=== PATIENT | male | born 1940 | race Caucasian/White ===

== ENCOUNTER → 2024-01-11 08:11 | Outpatient (REF) | payer MEDICARE, SELFPAY | LOC: RAD 08:11 | PROVIDERS: ATTENDING PHYSICIAN Internal Medicine Hematology & Oncology; FAMILY PHYSICIAN Family Medicine | DX: D70.9 Neutropenia, unspecified (principal); D72.820 Lymphocytosis (symptomatic); C91.Z0 Other lymphoid leukemia not having achieved remission | CPT/HCPCS: 76705 ==

== ENCOUNTER → 2024-01-12 15:43 | Outpatient (REF) | payer MEDICARE, SELFPAY ==
[2024-01-12 16:59] LABS: Hematocrit 32.8 % (39.0-52.0); Mean Corp Hgb Conc. 33.5 g/dL (33.0-37.0); Mean Corpuscular Hgb 32.4 pg (27.0-31.0); Mean Corpuscular Volume 96.8 fL (80.0-94.0); Mean Platelet Volume 8.9 fL (7.4-10.4); Nucleated Red Blood Cells % 0 % (-); Platelet Count 212 10^3/uL (130-400); Red Blood Cell Count 3.39 10^6/uL (4.70-6.10); Red Cell Dist. Width 13.7 % (11.5-14.5); White Blood Cell Count 5.3 10^3/uL (4.8-10.8)
[2024-01-12 17:34] LABS: Atypical Lymphocytes 1 %; Band Neutrophils 0 % (0-3); Eosinophils 2 % (0-6); Lymphocytes 59 % (20-51); Microcytosis Slight; Monocytes 18 % (2-9); Normal RBC Morphology No; Ovalocytes Occasional; Platelets Checked Yes; Segmented Neutrophils 20 % (42-75); Total Cells Counted 100
== END ==
LOC: OLABPV 15:43
PROVIDERS: ATTENDING PHYSICIAN Internal Medicine Hematology & Oncology
DX: D70.9 Neutropenia, unspecified (principal); D72.820 Lymphocytosis (symptomatic); C91.Z0 Other lymphoid leukemia not having achieved remission
CPT/HCPCS: 36415; 84155; 84165; 85025

== ENCOUNTER → 2024-02-02 16:06 | Outpatient (REF) | payer MEDICARE, SELFPAY | LOC: HWRCS 16:06 | PROVIDERS: ATTENDING PHYSICIAN Internal Medicine Cardiovascular Disease; FAMILY PHYSICIAN Family Medicine | DX: R01.1 Cardiac murmur, unspecified (principal); I35.0 Nonrheumatic aortic (valve) stenosis; R06.02 Shortness of breath; I25.10 Atherosclerotic heart disease of native coronary artery without angina pectoris; I25.82 Chronic total occlusion of coronary artery | CPT/HCPCS: 93306 ==

== ENCOUNTER → 2024-02-11 12:08 | Outpatient (REF) | payer MEDICARE, SELFPAY ==
[2024-02-11 13:08] LABS: Hematocrit 31.4 % (39.0-52.0); Hemoglobin 10.6 g/dL (13.0-18.0); Mean Corp Hgb Conc. 33.8 g/dL (33.0-37.0); Mean Corpuscular Hgb 32.7 pg (27.0-31.0); Mean Corpuscular Volume 96.9 fL (80.0-94.0); Mean Platelet Volume 9.1 fL (7.4-10.4); Platelet Count 175 10^3/uL (130-400); Red Blood Cell Count 3.24 10^6/uL (4.70-6.10); Red Cell Dist. Width 14.4 % (11.5-14.5)
[2024-02-11 13:21] LABS: ALT (SGPT) 22 U/L (0-50); AST (SGOT) 33 U/L (17-59); Albumin 4.3 g/dl (3.5-5.0); Alkaline Phosphatase 89 U/L (38-126); Blood Urea Nitrogen 32 mg/dl (9-20); Carbon Dioxide 27 mmol/L (22-30); Chloride 105 mmol/L (98-107); Glucose 92 mg/dl (70-99); HDL Cholesterol 51 mg/dl; LDL Cholesterol, Calculated 52 mg/dl; Potassium 4.6 mmol/L (3.5-5.1); Sodium 138 mmol/L (135-145); Total Bilirubin 0.5 mg/dl (0.2-1.3); Total Cholesterol 114 mg/dl (50-199); Triglyceride 56 mg/dl (10-149); Very Low Density Lipoprotein 11 mg/dl (0-30); eGFR 59.63
[2024-02-11 14:19] LABS: Absolute Neutrophils -Man Diff 1.2 10^3/uL (1.4-6.5); Anisocytosis Slight; Band Neutrophils 0 % (0-3); Eosinophils 5 % (0-6); Lymphocytes 65 % (20-51); Monocytes 6 % (2-9); Normal RBC Morphology No; Platelets Checked Yes; Segmented Neutrophils 24 % (42-75)
[2024-02-11 14:20] LABS: Ovalocytes Slight; Total Cells Counted 100
== END ==
LOC: OLABPV 12:08
PROVIDERS: ATTENDING PHYSICIAN Family Medicine
DX: I25.10 Atherosclerotic heart disease of native coronary artery without angina pectoris (principal); N18.31 Chronic kidney disease, stage 3a; C91.10 Chronic lymphocytic leukemia of B-cell type not having achieved remission
CPT/HCPCS: 36415; 80053; 80061; 85025

== ENCOUNTER → 2024-06-13 10:52 | Outpatient (REF) | payer MEDICARE, SELFPAY ==
[2024-06-13 11:32] LABS: Hematocrit 31.8 % (39.0-52.0); Hemoglobin 10.7 g/dL (13.0-18.0); Mean Corp Hgb Conc. 33.6 g/dL (33.0-37.0); Mean Corpuscular Hgb 32.2 pg (27.0-31.0); Mean Corpuscular Volume 95.8 fL (80.0-94.0); Mean Platelet Volume 9.1 fL (7.4-10.4); Platelet Count 179 10^3/uL (130-400); Red Blood Cell Count 3.32 10^6/uL (4.70-6.10)
[2024-06-13 11:59] LABS: % Basophils 0.4 % (0-2); % Eosinophils 3.6 % (0-6); % Lymphocytes 68.3 % (20.5-51.1); % Monocytes 18.3 % (1.7-9.3); % Neutrophils 9.4 % (42.2-75.2); Absolute Eosinophils 0.2 10^3/uL (0-0.7); Absolute Lymphocytes 3.4 10^3/uL (1.2-3.4); Absolute Monocytes 0.9 10^3/uL (0.1-0.6); Absolute Neutrophils 0.5 10^3/uL (1.4-6.5); Nucleated Red Blood Cells % 0 % (-)
== END ==
LOC: OLABPV 10:52
PROVIDERS: ATTENDING PHYSICIAN Internal Medicine Cardiovascular Disease
DX: D70.9 Neutropenia, unspecified (principal); D72.820 Lymphocytosis (symptomatic); C91.Z0 Other lymphoid leukemia not having achieved remission; I25.10 Atherosclerotic heart disease of native coronary artery without angina pectoris; D64.9 Anemia, unspecified
CPT/HCPCS: 36415; 85025

== ENCOUNTER → 2025-01-30 09:56 | Outpatient (REF) | payer MEDICARE, SELFPAY | LOC: RST 09:56 | PROVIDERS: ATTENDING PHYSICIAN Family Medicine | DX: R13.10 Dysphagia, unspecified (principal) | CPT/HCPCS: 74230; 92611 ==

== ENCOUNTER → 2025-02-16 09:22 | Outpatient (REF) | payer MEDICARE, SELFPAY ==
[2025-02-16 11:06] LABS: Hematocrit 35.8 % (39.0-52.0); Hemoglobin 11.9 g/dL (13.0-18.0); Mean Corp Hgb Conc. 33.2 g/dL (33.0-37.0); Mean Corpuscular Hgb 33.1 pg (27.0-31.0); Mean Corpuscular Volume 99.7 fL (80.0-94.0); Mean Platelet Volume 9.3 fL (7.4-10.4); Platelet Count 196 10^3/uL (130-400); Red Blood Cell Count 3.59 10^6/uL (4.70-6.10); Red Cell Dist. Width 13.5 % (11.5-14.5); White Blood Cell Count 5.8 10^3/uL (4.8-10.8)
[2025-02-16 11:17] LABS: ALT (SGPT) 20 U/L (0-50); AST (SGOT) 26 U/L (17-59); Albumin 4.6 g/dl (3.5-5.0); Alkaline Phosphatase 80 U/L (38-126); Blood Urea Nitrogen 24 mg/dl (9-20); Calcium 9.9 mg/dl (8.4-10.2); Carbon Dioxide 27 mmol/L (22-30); Chloride 106 mmol/L (98-107); Glucose 97 mg/dl (70-99); HDL Cholesterol 45 mg/dl; LDL Cholesterol, Calculated 55 mg/dl; Potassium 4.3 mmol/L (3.5-5.1); Sodium 140 mmol/L (135-145); Total Bilirubin 0.5 mg/dl (0.2-1.3); Total Cholesterol 123 mg/dl (50-199); Total Protein 7.5 g/dl (6.3-8.2); Triglyceride 117 mg/dl (10-149); Very Low Density Lipoprotein 23 mg/dl (0-30); eGFR 59.26
[2025-02-16 11:41] LABS: % Basophils 0.5 % (0-2); % Eosinophils 5.6 % (0-6); % Immature Granulocytes 0.2 % (0-0.5); % Lymphocytes 62.4 % (20.5-51.1); % Neutrophils 16.3 % (42.2-75.2); Absolute Eosinophils 0.3 10^3/uL (0-0.7); Absolute Lymphocytes 3.6 10^3/uL (1.2-3.4); Absolute Monocytes 0.9 10^3/uL (0.1-0.6); Absolute Neutrophils 0.9 10^3/uL (1.4-6.5); Nucleated Red Blood Cells % 0 % (-)
== END ==
LOC: OLABPV 09:22
PROVIDERS: ATTENDING PHYSICIAN Family Medicine
DX: N18.31 Chronic kidney disease, stage 3a (principal); E78.2 Mixed hyperlipidemia; C91.10 Chronic lymphocytic leukemia of B-cell type not having achieved remission
CPT/HCPCS: 36415; 80053; 80061; 85025

== ENCOUNTER → 2025-04-05 10:15 | Outpatient (REF) | payer MEDICARE, SELFPAY | LOC: RCS 10:15 | PROVIDERS: ATTENDING PHYSICIAN Internal Medicine Cardiovascular Disease; FAMILY PHYSICIAN Family Medicine | DX: I35.0 Nonrheumatic aortic (valve) stenosis (principal) | CPT/HCPCS: 93306 ==

== ENCOUNTER → 2025-04-11 13:15 | Outpatient (REF) | payer MEDICARE, SELFPAY ==
[2025-04-11 14:15] LABS: Hematocrit 35.0 % (39.0-52.0); Hemoglobin 11.4 g/dL (13.0-18.0); Mean Corp Hgb Conc. 32.6 g/dL (33.0-37.0); Mean Corpuscular Volume 98.3 fL (80.0-94.0); Platelet Count 179 10^3/uL (130-400); Red Cell Dist. Width 13.8 % (11.5-14.5)
[2025-04-11 14:17] LABS: ALT (SGPT) 21 U/L (0-50); AST (SGOT) 26 U/L (17-59); Albumin 4.5 g/dl (3.5-5.0); Alkaline Phosphatase 63 U/L (38-126); Blood Urea Nitrogen 27 mg/dl (9-20); Calcium 10.5 mg/dl (8.4-10.2); Carbon Dioxide 31 mmol/L (22-30); Chloride 103 mmol/L (98-107); Glucose 96 mg/dl (70-99); Potassium 4.5 mmol/L (3.5-5.1); Sodium 139 mmol/L (135-145); Total Protein 7.7 g/dl (6.3-8.2); eGFR 53.84
[2025-04-11 14:47] LABS: Nucleated Red Blood Cells % 0 % (-)
== END ==
LOC: SDSPAT 13:15
PROVIDERS: ATTENDING PHYSICIAN Internal Medicine Cardiovascular Disease; FAMILY PHYSICIAN Family Medicine; OTHER PHYSICIAN Internal Medicine Cardiovascular Disease
DX: I35.0 Nonrheumatic aortic (valve) stenosis (principal)
CPT/HCPCS: 36415; 80053; 85025; 93005

== ENCOUNTER → 2025-04-16 09:03 | Outpatient (REF) | payer MEDICARE, SELFPAY | LOC: RAD 09:03 | PROVIDERS: ATTENDING PHYSICIAN Internal Medicine Cardiovascular Disease; FAMILY PHYSICIAN Family Medicine | DX: I35.0 Nonrheumatic aortic (valve) stenosis (principal); R93.1 Abnormal findings on diagnostic imaging of heart and coronary circulation; R01.1 Cardiac murmur, unspecified; I25.10 Atherosclerotic heart disease of native coronary artery without angina pectoris; R06.02 Shortness of breath | CPT/HCPCS: 74174; 75572; Q9967 ==

== ENCOUNTER 2025-04-18 07:20 | Day surgery (SDC) | payer MEDICARE, SELFPAY ==
[2025-04-11 13:20] VITALS: BMI 23.7
[2025-04-18] VITALS (12 sets, daily range): BP systolic 104–150; BP diastolic 52–90
[2025-04-18] MEDS: LOW STRENGTH ASPIRIN 81 MG PO (07:55)
[2025-04-18] MEDS: NSS 200 ML IV (07:57)
[2025-04-18 08:33] LABS: Blood Urea Nitrogen 29 mg/dl (9-20); Calcium 10.0 mg/dl (8.4-10.2); Carbon Dioxide 29 mmol/L (22-30); Chloride 106 mmol/L (98-107); Estimated Creatinine Clearance 37 ml/min; Glucose 104 mg/dl (70-99); Potassium 4.4 mmol/L (3.5-5.1); Sodium 140 mmol/L (135-145); eGFR 53.84
[2025-04-18 09:57] LABS: ACT-LR - POC > 397 Seconds (116-155)
--- NOTE | 2025-04-18 10:19 | ITS.CL.CATH ---
Crm Analyst - Catheterization
Cardiac Catheterization
Procedure Report:
CARDIAC CATHETERIZATION REPORT
Date of Procedure: 04/18/2025
Referring: Richard Kemp M.D.
Indication: Severe aortic valve stenosis, known coronary artery disease.
PROCEDURE:
1. Right heart catheterization.
2. Coronary angiography.
3. Left heart catheterization.
4. Aortic valve interrogation.
5. IFR of the ostial LAD.
A total of 37 minutes of procedural/moderate sedation was utilized. An independent medical dir was present to assist with and help manage the patient's level of consciousness and physiologic status.
ACCESS:
1. 6 Maltese right radial artery using a modified Seldinger technique.
2. 5 Maltese right antecubital vein using a modified Seldinger technique under ultrasound guidance.
CATHETERS:
1. 5 Maltese balloon with.
2. 5 Maltese JR4.
3. 5 Maltese JL 3.5.
4. 6 Maltese Bronson dual-lumen pigtail catheter.
HEMODYNAMIC DATA
Weight (kg): 66.2
AO (s/d/x, mmHg): 119/59/82
LV (s/x, mmHg): 148/14
PCWP (a/v/x, mmHg): 18/15/14
PA (s/d/x, mmHg): 34/15/21
RV (s/x, mmHg): 34/9
RA (a/v/x, mmHg): 12//10
SVC SvO2 (%): 76.2
IVC SvO2 (%): Not obtained.
RA SvO2 (%): Not obtained.
RV SvO2 (%): Not obtained.
PA SvO2 (%): 76.8
SaO2 (%): 97.8
Hbg (g/dL): . 10.8
LIZZETTE
CO (L/min): 6.34
CI (L/min/m2): 3.62
Thermodilution
CO (L/min): Not performed.
CI (L/min/m2): Not performed.
TPG (mmHg): 7
PVR (García Units): 1.1
SVR (dynes*seconds*cm^-5): 909
AVO2 Diff (Volume %): 3.08
Dual Lumen
AV gradient (x, mmHg): 41.3
AV area (cm2): 1.0
Pullback
AV gradient (x, mmHg): 32.5
AV area (cm2): 1.6
MV gradient (x, mmHg): Not obtained.
MV area (cm2): Not obtained.
LEFT VENTRICULOGRAPHY: Not performed.
AORTOGRAPHY: Not performed.
CORONARY ANGIOGRAPHY
Dominance: Right.
Left Main: Normal size, trifurcating vessel. There is no coronary artery disease.
LAD: Normal size vessel giving rise to 1 significant diagonal. The vessel has a 60% lesion in its ostium that is densely calcified.
Ramus: Small, vestigial vessel.
Circumflex: Large size, nondominant vessel that is essentially a single large obtuse marginal. The origin of the vessel is somewhat tortuous with a 30-40% lesion in its origin.
RCA: Normal size, dominant vessel. 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 The distal RCA is chronically totally occluded with combined right to right epicardial and [id number] collateralization
of the RPDA.
INTERVENTIONS
1. Successful IFR of the 60% ostial LAD lesion, demonstrating nonocclusive disease (IFR = 0.94).
Narrative:
Closure Device: Vascular band for the right radial artery, manual pressure for the right antecubital vein.
Radiation dose (mGy): 311.56
DAP (cm2.Gy): 24.6168
Fluoroscopy time (minutes): 4.9
CONCLUSIONS:
1. 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
from the circumflex, a tortuous origin of the circumflex with a 30-40% lesion in its origin and a densely calcified, nonocclusive 60% lesion in the ostium of the LAD (IFR = 0.94).
2. Top normal to mildly elevated filling pressures (LVEDP = 14 mmHg, PCWP = 14 mmHg at 66.2 kg).
3. Aortic valve stenosis of unclear severity. The aortic valve gradient measured 41.3 mmHg with dual-lumen pigtail catheter, however there was significant discrepancy without fidelity of measurement on catheter pullback with a dual-lumen catheter.
Mean gradient on endhole catheter pullback was 32.47 mmHg. These measurements correspond to an aortic valve area of 1.0 cm� and 1.62 cm�. I suspect that the aortic valve is of moderate to severe severity and I do not observe any other hemodynamic
or ischemic sources for his decreased exercise tolerance and shortness of breath.
RECOMMENDATIONS:
1. Expectant management after cardiac catheterization via right radial/antecubital approach.
2. Limited weight bearing on the right wrist for one week.
3. Continue TAVR workup.
4. Continue aggressive primary prevention with high-dose, high potency statin. Goal LDL <55.
5. OMT/GDMT as hemodynamics will tolerate.
Copy to: Richard Kemp M.D., Pankaj Cortez M.D.
Cedric Rosales, , FACC, FACP
== END 2025-04-18 14:00 | disposition home or self-care (01) ==
LOC: CATH 07:20
PROVIDERS: Nurse Practitioner; ATTENDING PHYSICIAN Internal Medicine Cardiovascular Disease; FAMILY PHYSICIAN Family Medicine; OTHER PHYSICIAN Internal Medicine Cardiovascular Disease
DX: I35.0 Nonrheumatic aortic (valve) stenosis (principal); E78.5 Hyperlipidemia, unspecified; I25.10 Atherosclerotic heart disease of native coronary artery without angina pectoris; I25.82 Chronic total occlusion of coronary artery; N18.30 Chronic kidney disease, stage 3 unspecified; G89.29 Other chronic pain; M54.50 Low back pain, unspecified; M19.90 Unspecified osteoarthritis, unspecified site; C91.10 Chronic lymphocytic leukemia of B-cell type not having achieved remission; D64.9 Anemia, unspecified; R73.01 Impaired fasting glucose; A69.20 Lyme disease, unspecified; H91.90 Unspecified hearing loss, unspecified ear; E83.52 Hypercalcemia; Z79.899 Other long term (current) drug therapy; Z79.82 Long term (current) use of aspirin; Z88.0 Allergy status to penicillin
CPT/HCPCS: 93799; 99152; 99153; 80048; 85347; 93460; C1769; C1894; Q9967

== ENCOUNTER 2025-06-07 09:21 | Inpatient (IN) | payer MEDICARE, SELFPAY ==
[2025-05-30 12:17] VITALS: BMI 22.4
--- NOTE | 2025-05-30 12:47 | W.PN.UPDATE ---
Update Note
Progress Note Update
Assessed patient in preadmission testing. The patient's condition is unchanged from the time of the dictated/written History and Physical. Confirmed medication list and he will continue 81 mg aspirin daily including the morning of TAVR. Informed Mr.
Akash his arrival time will be 0930 to the [facility]. Allowed for and answered questions.
[2025-05-30 13:07] LABS: Hematocrit 33.6 % (39.0-52.0); Hemoglobin 11.0 g/dL (13.0-18.0); Mean Corp Hgb Conc. 32.7 g/dL (33.0-37.0); Mean Corpuscular Volume 98.8 fL (80.0-94.0); Platelet Count 175 10^3/uL (130-400); Red Cell Dist. Width 13.9 % (11.5-14.5)
[2025-05-30 13:12] LABS: INR 1.06; PT 14.3 Sec (11.4-14.6)
--- NOTE | 2025-05-30 13:22 | CM ---
Met with Mr. Bustos in [facility]. He states prior to admission he resides with his spouse in the independent section of [facility]. He states he has a one story home without any steps to enter. He states prior to admission he was
independent with ambulation and adls. He states he does not have any DME in the home. He states he has a prescription plan and uses [facility]. His daughter will be in town to stay with his spouse while he is here. He states his spouse will be
home to assist in his care if needed. The discharge plan is to return home with his spouse and a home visit by the Transitional Care Nurse when medically stable.
We reviewed pre-op and post-op routines. We reviewed the shower instructions. He has the soap, written instructions and the TAVR Educational Booklet. We also reviewed restrictions including driving and lifting restrictions. We discussed a home
visit by the Transitional Care Nurse. He is agreeable to a home visit. The plan is for TAVR on May.
[2025-05-30 13:40] LABS: ALT (SGPT) 21 U/L (0-50); AST (SGOT) 28 U/L (17-59); Albumin 4.6 g/dl (3.5-5.0); Alkaline Phosphatase 73 U/L (38-126); Blood Urea Nitrogen 29 mg/dl (9-20); Calcium 10.0 mg/dl (8.4-10.2); Carbon Dioxide 29 mmol/L (22-30); Chloride 103 mmol/L (98-107); Estimated Creatinine Clearance 41 ml/min; Glucose 78 mg/dl (70-99); Potassium 4.6 mmol/L (3.5-5.1); Sodium 138 mmol/L (135-145); Total Protein 7.8 g/dl (6.3-8.2); eGFR 59.26
[2025-05-30 13:49] LABS: Absolute Neutrophils -Man Diff 0.3 10^3/uL (1.4-6.5)
[2025-05-30 13:50] LABS: Platelets Checked Yes
[2025-05-30 13:51] LABS: Acanthocytes FEW; Anisocytosis 1+; Hypochromasia 1+; Normal RBC Morphology No; Ovalocytes FEW; Polychromasia 1+; Total Cells Counted 100
[2025-05-30 13:53] LABS: Glycohemoglobin (HgbA1c) 5.3 % (4.0-5.6)
[2025-05-30 14:17] LABS: Urine Character Clear (Clear)
[2025-06-07] VITALS (21 sets, daily range): BP systolic 103–147; BP diastolic 45–66
--- NOTE | 2025-06-07 11:19 | W.CVOR.SURPR ---
CVOR Surgeon Immed Pre Op
-
I have examined this patient prior to performance of the scheduled procedure.
The patient's condition is unchanged from the time of the dictated/written History and
Physical and the patient is able to undergo the scheduled procedure.
[2025-06-07 13:04] LABS: ACT-LR - POC 385 Seconds (116-155)
--- NOTE | 2025-06-07 13:14 | ITS.CL.TAVR ---
Executive Housekeeper - TAVR Report
TAVR PRocedure
Procedure Report:
TRANSCATHETER AORTIC VALVE REPLACEMENT REPORT
Date: 06/07/2025
Referring physician: Richard Kemp M.D.
Preop diagnosis: Severe aortic valve stenosis.
Postop diagnosis: Severe aortic valve stenosis.
Procedure: Transcatheter aortic valve replacement (TAVR) using a #23 Kemp LEANNA S3 Ultra Resilia THV.
Operators: Cedric Rosales DO, Lisa Soler, M.D.
Findings: Severely calcified and stenotic aortic valve.
Anesthesia: Conscious sedation was provided by the anesthesia staff.
Estimated blood loss: Negligible.
Complications: None.
Condition: Stable
Procedure:
The patient was brought to the cardiac veterinary laboratory diagnostician after consent and was prepped and draped in standard sterile fashion. Conscious sedation was provided by the anesthesia staff. After a 'Time Out,' bilateral common femoral arteries and the right
common vein were access using a modified Seldinger technique with a micropuncture kit under ultrasound guidance. A 6 Cypriot sheath was placed in the right femoral vein. Angiography performed through the micropuncture sheath confirmed satisfactory
arterial placement in the right common femoral artery. The micropuncture sheath was replaced with a 6Fr sheath in the right MULTIPLE EFFECT EVAPORATOR OPERATOR. Angiography through the micropuncture kit confirmed satisfactory arterial placement in the left common femoral artery.
The left MULTIPLE EFFECT EVAPORATOR OPERATOR was dilated with an 8FR dilator and preclosed with two Perc-Close devices. An 8Fr sheath was placed in the LCFA. A temporary pacing wire was advanced through the right femoral vein and into the right ventricle. The pacemaker
demonstrated good capture and was set to back up. A 5Fr pigtail catheter was advanced through the right femoral sheath and seated in the right coronary cusp. Angiography confirmed co-planar angles.
An AL-1 catheter was advanced through the 8Fr sheath, the J wire was exchanged for an Amplatz Extra-Stiff wire and the catheter and the 8 Fr sheath were removed. The 14 Fr Kemp E-Sheath was inserted over the wire and into the descending aorta.
Heparin 6000 units was given. The LEANNA S3 was prepared on the back table. Orientation was confirmed by both physicians. The AL-1 catheter was re-advanced through the E-sheath to the level of the ascending aorta. The Extra-Stiff wire was
removed and a soft tip straight wire was advanced through the AL-1. The straight tip wire was used to cross the aortic valve and the catheter was advanced into the left ventricle. The straight wire was removed. Left ventricular pressure was
measured. An Amplatz Extra-Stiff wire with curved proximal end was advanced through the catheter and into the left ventricular apex. The catheter was removed. ACT was checked and confirmed to be > 250 seconds.
The valve was advanced over the Extrastiff wire and into the descending aorta. The balloon was pulled back and the valve was mounted on the balloon. The valve was advanced through the aortic arch and into the aortic valve annulus. The pusher
device was withdrawn to allow for balloon expansion. Low volume aortography confirmed good position of the valve. The valve was deployed during rapid ventricular pacing. Echocardiography and aortography confirmed a good result with trace aortic
valve insufficiency and a 6 mmHg mean gradient. The valve deployment system was removed. The Kemp E-Sheath was then removed and hemostasis obtained with the two Perc-Close sutures. Final angiography demonstrated no evidence of ileofemoral
dissection/perforation and good runoff below the common femoral artery. The pacemaker and the pigtail catheter were removed. The right femoral artery sheath was removed using a 6 Cypriot Angio-Seal. The right femoral venous sheath was removed and
manual pressure was applied with excellent hemostasis. Protamine 30 mg was administered.
Radiation
Dose (mGy): 165
DAP (cm2.Gy): 19.1
Fluoroscopy time (minutes): 9.6
TAVR Echo Gradient (mmHg): 6
LV (s/x, mmHg): 149/22
TAVR Cath Gradient (mmHg): Not obtained.
Conclusions:
1. Successful placement of #23 Leanna S3 Ultra aortic valve via left transfemoral approach with no acute complications.
2. Moderately elevated filling pressures (LVEDP = 22 mmHg at 64.4 kg).
Cedric Rosales DO, FACC, FACP
Copy to: Richard Kemp M.D., Pankaj Cortez M.D.
--- NOTE | 2025-06-07 13:19 | W.PN.CT.SURG ---
CT Surgery Operative Note
-
OPERATIVE REPORT
Preoperative Diagnosis: Severe aortic valve stenosis, symptomatic
Postoperative Diagnosis: Same
Procedure(s) Performed: Left trans femoral TAVR with a 23 mm Kemp TAVR valve
Date of Procedure: 06/07/2025
Comorbidities:
1. Severe aortic stenosis, symptomatic
2. Coronary artery disease
3. CKD
Cardiac Surgeon: Tonia Whiteside MD, MPH
Dress Fitter: Cedric Rosales MD
Anesthesia: Conscious Sedation and Local Analgesia
EBL: 100 cc
Products: none
Implant: 23 mm Kemp Resilia, SN: [id number]
Indication(s) for Procedures: 84-year-old male with symptomatic severe aortic stenosis. PG/M/44 mmHg, MAXINE 0.9. CT-TAVR protocol revealed acceptable anatomy for TAVR access and implantation.
Start time: 1224 hrs
Deployment time: 1257 hrs
End time: 1310 hrs
Radiation Dose (mGy): 165
DAP (cm2.Gy): 19.1
Fluoroscopy time (minutes): 9.6
Contrast volume (ml): 50
TAVR gradient (mmHg): 6 mmHg
Heparin Dose: 6000 units
Protamine Dose: 30 mg
Final Valve Positionin/10
LVEPD: 27 mmHG
Findings: Preoperative LVEF was 60-65% and was 60-65% following TAVR without inotropic support. Function was overall normal without regional wall motion abnormalities or dyskinesia. The aortic valve was well seated without detectable PVL and mean
gradient across the new valve was 6 mmHg. Was on minimal pressor support and returned to sinus while on the laborer/grade check table. There was successful placement of 23 mm TAVR valve without acute complications.
Access:
1. Device -L PROMOTIONS MANAGER, perclose x 2
2. Pigtail -R PROMOTIONS MANAGER + 6Fr angioseal
3. Transvenous Pacer -R femoral vein
Description of Procedure: The patient was taken to the laborer/grade check. Their identity and procedure to be performed were verified and they were positioned supine on the laborer/grade check table. Induction via conscious sedation. The patient was then prepped and
draped from chin to thigh in a sterile fashion. A preoperative time-out was performed with all members of the team present. Arterial and venous access was performed using fluoroscopy and ultrasound guidance with micropuncture and Seldinger
technique. Two perclose devices were used on the device side followed by access to the aorta with a stiff wire to facilitate E-sheath placement. Heparin was given. A stiff straight wire and AL-1 catheter was used to cross the aortic valve. An LVEDP
was measured. The stiff wire was exchanged for an extra stiff coiled tip wire. The valve was prepped and mounted on to the device carrier. An ACT of >250 was achieved. We verified x 3 that the valve was mounted in the correct orientation with the
skirt of the valve directed toward the tip of the device carrier. We advanced the device into the descending thoracic aorta where the valve was them mounted onto the balloon under fluoroscopy. The device was flexed and advanced over the arch into
the root and positioned across the aortic valve. Contrast fluoroscopy was used to visualize the prosthesis across the valve and to guide positioning. A pigtail catheter in the RCC as used as a guide. We aimed to have the bottom of the device marker
at the annular hinge point. The device sheath was pulled back. We performed a quick pre-deployment time out. The pacer was turned on and had capture. Blood pressure fell accordingly, angiography was done to verify the intended final placement and
the valve was deployed with 5 seconds of rapid pacing to nominal volume. The balloon was deflated and the pacer was turned off. We had recovery of vitals. The device carrier was unflexed and positioned back in the descending thoracic aorta. A
transthoracic echocardiogram was performed. The device was removed from the E-Sheath maintaining wire access followed by removal of the E-sheath as we cinched down the perclose devices. There was acceptable hemostasis. The pigtail was withdrawn into
the descending/abdominal and completion aortogram with runoff run-off angiography was performed. There was no stenosis or dissection of bilateral iliofemoral systems. There was acceptable hemostasis of bilateral groins and manual pressure was held
following wire removal. Low dose protamine was administered after checking another ACT.
All instrument, sponge, and needle counts were confirmed to be correct x 2 at the end of the operation. The patient was transferred to the cardiac intensive care unit in stable condition.
I, Dr. Tonia Whiteside, was present, scrubbed for, and performed all critical elements of this procedure.
Tonia Whiteside MD, MPH
Cardiothoracic Surgeon
[facility]
This operative dictation was created using the [employer] dictation system. Please excuse any grammatical, typographical, or 'sound alike' errors
--- NOTE | 2025-06-07 14:47 | CM ---
Reviewed chart. Mr. Bustos is in the operating room today. Prior to admission he resides with his spouse in the independent section of [facility]. He has a one story home without any steps to enter. Prior to admission he was
independent with ambulation and adls. He does not have any DME in the home. He has a prescription plan and uses [facility]. His daughter will be in town to stay with his spouse while he is here. His spouse will be home to assist in his care if
needed. The discharge plan is to return home with his spouse and a home visit by the Transitional Care Nurse when medically stable.
--- NOTE | 2025-06-07 19:21 | PTCARENOTE ---
Pt received from recovery area post TAVR, on norepinephrine infusion at 2 mcg which was off by 17:25. Pt c/o mild left knee discomfort relieved with repositioning. Bilateral femoral sites with dry and intact dressings, no sign of bleeding or
hematoma. Neuro assessment at pt's baseline, walked independently once off bedrest. Telemetry show sinus rhythm with LBBB, heart rate @50's - 60's. Pt coughing up some phlegm and he and his family reported similar coughing at home. Pt and family
stated he had had a normal swallow study 5 months ago and was deemed to have post nasal drip. Pt able to swallow liquids and eat regular food sitting up in a chair. Plan for CXR and ECHO on 06/08.
[2025-06-07] MEDS: ANCEF 5 IV (20:04)
[2025-06-07] MEDS: REFRESH EYE DROPS (PF) 1 DROPS OPHTH (20:05)
[2025-06-07] MEDS: TYLENOL 650 MG PO (21:35)
[2025-06-07] MEDS: BENADRYL 25 MG PO (21:35)
[2025-06-07] MEDS: COLACE 100 MG PO (21:36)
[2025-06-08] VITALS (7 sets, daily range): BP systolic 102–123; BP diastolic 41–57; PULSE 60; O2SAT 99; BMI 22.1
--- NOTE | 2025-06-08 00:04 | PTCARENOTE ---
Rec'd pt at change of shift. PT AAO*3, VSS, and SR on TELE monitor. Pt reports mild should discomfort and PRN tylenol given as ordered. Pt also reported feeling of constipation and PRN Colace given as ordered. Neurovascular check complete as
documented. Pt aware of activity restrictions. Pt now resting with call scherer in reach. See MAr and flowchart for full pt care and assessment.
--- NOTE | 2025-06-08 02:45 | W.PN.CT ---
Today's Communication / Plan
-
-POD#1
-no issues overnight
-OAC plan: ASA
-New LBBB, d/w cardiology
-check echo
-OOB
-discharge planning
Assessment / Plan
-
s/p Left trans femoral TAVR with a 23 mm Kemp TAVR valve POD#1
-severe
-SOB
-HLD
-rotator cuff repair
-hernia repair
-New LBBB
Subjective
Procedure
s/p Left trans femoral TAVR with a 23 mm Kemp TAVR valve by Dr. Whiteside on 06/07/25
-
Date of Service: June 08, 2025
Objective Data
-
Lab Results
06/08/25 03:02
06/08/25 03:02
PT 14.3 Sec (11.4-14.6) 05/30/25 12:12
INR 1.06 05/30/25 12:12
Vital Signs
Vital Signs
Temp Pulse Resp BP Pulse Ox
97.7 F 55 18 123/54 97
06/08/25 02:56 06/08/25 04:00 06/08/25 02:56 06/08/25 02:56 06/08/25 02:56
CT Intake/Output/Weight
06/07/25 06/07/25 06/08/25
06:59 18:59 06:59
Intake Total 800 / 1280 480 / 1280
Output Total 725 / 725
Balance 75 / 555 480 / 555
SaO2: 96
Physical Exam
-
General: AOx3
Cardiovascular: Regular rate & rhythm
Respiratory: Clear
Incision: Dressing Intact
Extremities: No Edema
Data Reviewed
-
Lab Results: Results Reviewed
ECG: Image Reviewed
[2025-06-08 03:29] LABS: Hematocrit 29.9 % (39.0-52.0); Hemoglobin 10.2 g/dL (13.0-18.0); Mean Corp Hgb Conc. 34.1 g/dL (33.0-37.0); Mean Corpuscular Volume 98.7 fL (80.0-94.0); Platelet Count 113 10^3/uL (130-400); Red Cell Dist. Width 13.9 % (11.5-14.5)
[2025-06-08 03:52] LABS: Blood Urea Nitrogen 30 mg/dl (9-20); Calcium 9.6 mg/dl (8.4-10.2); Carbon Dioxide 26 mmol/L (22-30); Chloride 105 mmol/L (98-107); Estimated Creatinine Clearance 44 ml/min; Glucose 107 mg/dl (70-99); Potassium 4.7 mmol/L (3.5-5.1); Sodium 138 mmol/L (135-145); eGFR > 60.00
--- NOTE | 2025-06-08 07:19 | W.PN.ANS.POP ---
Anesthesia Post Operative
- Anesthesia Post Op Note
Vital Signs Stable-See Nursing Note: Yes
Airway Patent: Yes
Adequate Pain Control: Yes
Change in Mental Status: No
Current Postoperative Nausea & Vomiting: No
Anesthesia Complications: No
General Anesthetic Recall: No
Unplanned Admission: No
Post Op Hydration Adequate: Yes
--- NOTE | 2025-06-08 08:08 | W.PN.CD ---
Addendum entered and electronically signed by Cedric Rosales DO 06/08/25 10:21:
Patient discussed with electrophysiology. The right bundle branch block witnessed on EKG appears to be junctional versus AIVR and not a true right bundle branch block. No role for pacemaker at this time. 30-day rhythm*ordered. Echocardiogram pending
with likely discharge today.
Original Note:
Today's Communication / Plan
-
Echocardiogram.
EP discussion (Rhythm star vs. PPM).
Discharge planning.
Impression / Plan
-
Impression/Plan: 84 y/o with HLD, CAD and severe admitted for elective TAVR.
#Severe aortic valve stenosis
-Chronic, progressive.
-S/P #23 Kemp LEANNA S3 TAVR via LCFA approach.
-Antithrombotic therapy with aspirin monotherapy.
-EKG shows NSR with LBBB on two EKGs and junctional rhythm with a RBBB on one EKG. Telemetry shows LBBB. I will discuss with EP (Rhythm star vs. PPM for alternating BBB).
-Bilateral access sites are C/D/I.
-Echocardiogram pending.
#HLD
-Chronic, stable.
-Continue atorvastatin 40 mg daily.
#CAD
-Chronic, stable.
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
-Continue aspirin, atorvastatin.
#Dispo
-EP discussion.
-Discharge planning.
Subjective/Interval History:
TAVR yesterday.
Transiently required norepinephrine, now off.
EKG shows new LBBB but also junctional rhythm with RBBB morphology.
DATA:
TAVR, 06/07/2025:
Conclusions:
1. Successful placement of #23 Elanna S3 Ultra aortic valve via left transfemoral approach with no acute complications.
2. Moderately elevated filling pressures (LVEDP = 22 mmHg at 64.4 kg).
Physical Exam
Vital Signs/Labs
Vital Signs
Temp Pulse Resp BP Pulse Ox
36.5 C 55 18 123/54 97
06/08/25 02:56 06/08/25 04:00 06/08/25 02:56 06/08/25 02:56 06/08/25 02:56
06/06/25 06/07/25 06/08/25
11:59 11:59 11:59
Actual Weight 64 kg
06/08/25 03:02
06/08/25 03:02
PT 14.3 Sec (11.4-14.6) 05/30/25 12:12
INR 1.06 05/30/25 12:12
05/30/25
12:12
Lbb-C-Eepioinnhnu Pept 542
Physical Exam
Constitutional: No acute distress and Comfortable
EENT: Anicteric and Moist mucous membranes
Cardiovascular: Rhythm & rate is regular, Pedal edema is absent, JVD pressure is normal, S1S2 is normal and Murmur/rub/gallop absent
Respiratory: Respiratory effort normal, Lungs clear to auscul., Wheeze Absent, Crackles Absent and Rhonchi Absent
GI: Soft, Distention absent, Flat, Non tender and Normal bowel sounds
Neuro/Psych: AO x 3
Other: Cath Site (Bilateral access sites are C/D/I.)
Data Reviewed
-
Date of Service: June 08, 2025
Medical Decision Making: Reviewed Test Results, Independent Historian Assessment and Test Interpretation
EKG: Tracing Personally Visualized and interpreted and Report Reviewed by me
Echo: Tracing Personally Visualized and interpreted and Report Reviewed by me
X-Ray/CT/US/MRI/NUC/PET: Image Personally Visualized and interpreted and Report Reviewed by me
Medical Tests (PFT, Pathology etc): Image Personally Visualized and interpreted and Report Reviewed by me
Labs: Labs Reviewed by me
Old Records: Reviewed
--- NOTE | 2025-06-08 09:39 | W.DCSUMMARY ---
Discharge Summary
Discharge Data
Date of Admission: 06/07/25
Date of Discharge: 06/08/25
-
Pending Results: No
Hospital Course
Primary care physician: Pankaj Cortez
Outpatient senior tax manager: Richard Kemp
Inpatient consultants: [facility]
Procedures:
1. left transfemoral aortic stenosis
Primary Diagnosis:
1. severe aortic stenosis with acute HFpEF (LVEDP 27)
Secondary Diagnoses:
1. Coronary artery disease (LAD & RCA)
2. CKD
3. Lyme disease
4 Acute post-op hypotension-expected
5. Acute Post op AIVR
6. Acute post-op left bundle branch block
HPI: 84-year-old male was electively admitted on 03/07/2025 for elective TAVR.
Hospital course: Patient was in the [employer] and underwent EGD left transfemoral TAVR #23 CHA [address] D[address] Tonia Whiteside and Cedric Rosales. Received and tolerated periop Ancef without incident. For further details, please see operative note. Patient
required brief Levophed infusion in the [employer] recovery for transient expected hypotension which was quickly weaned off. Bilateral groin sites remained intact. Per cardiology, the right bundle branch block witnessed on EKG appears to be
junctional versus AIVR and not a true right bundle branch block. No role for pacemaker at this time. Morning ECG reported sinus bradycardia with left bundle branch block. Low-dose aspirin was resumed. Rhythm monitor was ordered for discharge.
Chest x-ray showed no acute pulmonary abnormality. Pre discharge TTE reported an EF of 60-65%, AV 23/13mmHg and no aortic insufficiency. Labs on day of discharge: Hemoglobin 10.2, WBC 7.4, platelets 113K, K4.7, creatinine 1.1. Patient ambulated in
halls without difficulty and is deemed stable for discharge home.
Home medication changes:
none
Discharge Plan
-
Patient Disposition: Home (Routine Discharge)
Discharge Diagnosis/Procedures: L TF TAVR #23mm S3
Condition: Good
Diet: No restrictions
Activity: No strenuous activity
Driving Restrictions: No driving for 1 week
Bathing Restrictions: OK to Shower
Others Tests: Echo 07/04/25 @ 1030 at [facility]
Specialty Instructions: Weigh Daily- Call MD for wt gain/loss 3 lbs overnight/5 lbs in 1 week
Referrals:
CT Transitional Care Nurse [Outside] - in one to two days
Referral Note:
The Cardiothoracic Transitional Care Nurse will call you to set up a visit in 1-2 days.
[facility]. Cardiac Rehab [Outside] - 07/12/25 11:30 am
Referral Note: Cardiac Rehab Orientation appointment is on Jul 12 1130 am.
The Cardiac Rehab gym is located on the first floor of the [facility].
Richard Kemp MD [Active, Cardiology] - 07/05/25 11:20 am
Pankaj Cortez MD [Family Provider, Family Practice] - in four to six weeks
Referral Note: Please make an appointment in four to six weeks.
Prescriptions:
Continued
fluticasone propionate 1 SPRAY spray,suspension
1 spray intranasal DAILY PRN (Reason: allergies)
Align (B.infantis) 4 MG capsule
4 mg PO DAILY
glucosamine alfredo 2KCl-chondroit 1 EACH tablet
1 ea PO DAILY
Centrum Silver Men 1 EACH tablet
1 ea PO DAILY
nitroglycerin 0.4 MG tablet, sublingual
0.4 mg sublingual [id number] PRN (Reason: chest pain) Qty: 25 2RF
acetaminophen [Tylenol] 325 mg Tablet
650 mg PO Q4HPRN PRN (Reason: pain/headache)
atorvastatin 40 MG tablet
40 mg PO DAILY Qty: 90 3RF
aspirin 81 mg Tablet,Delayed Release (Dr/Ec)
81 mg PO DAILY Qty: 0 0RF
Systane (PF) 0.4-0.3 % Dropperette
1 drp OPHTHALMIC (EYE) BID Qty: 0 0RF
PreserVision AREDS 2,148 mcg-113 mg-45 mg-17.4mg Tablet
1 tab PO DAILY Qty: 0 0RF
Discharge Orders:
Discharge Patient (As Directed); Ordered 06/08/25
Ordered By: Lupe Martinez
Discharge Date and Time
Print Language: NAMIBIAN
[2025-06-08] MEDS: REFRESH EYE DROPS (PF) 1 DROPS OPHTH (09:52)
[2025-06-08] MEDS: LIPITOR 40 MG PO (09:52)
[2025-06-08] MEDS: OCUVITE SOFTGEL 1 CAP PO (09:52)
[2025-06-08] MEDS: COLACE 100 MG PO (09:52)
[2025-06-08] MEDS: ASPIR LOW (ENTERIC COATED) 81 MG PO (09:52)
[2025-06-08] MEDS: DULCOLAX 10 MG PO (10:51)
--- NOTE | 2025-06-08 11:43 | CM ---
Reviewed chart. Met with and Mrs. Bustos to review discharge plans. He states he is feeling well and maybe able to go home soon. He states he ambulated in the hallway today. We reviewed a home visit by the Transitional Care Nurse. He is agreeable
to a home visit. Prior to admission he resides with his spouse in the independent section of [facility]. He has a one story home without any steps to enter. Prior to admission he was independent with ambulation and adls. He
does not have any DME in the home. He has a prescription plan and uses [facility]. His daughter will be in town to stay with his spouse while he is here. His spouse will be home to assist in his care if needed. The discharge plan is to return
home with his spouse and a home visit by the Transitional Care Nurse when medically stable.
--- NOTE | 2025-06-08 15:41 | PTCARENOTE ---
Pt up independently, walking independently in halls. Pt seen by Cardiac Rehab, CHANDA Cardoza, and Drs. Rosales and Rene. Rhythm star home monitor placed on patient and activated, pt states understanding of instructions. Telemetry and
IV devices removed. Discharge instructions reviewed with pt and his regarding wound care, activity and driving restrictions, medications and their possible side effects, reporting cares and concerns and follow up appt's and ECHO. Very good
understanding verbalized. Pt escorted out via wheelchair and discharged to home.
== END 2025-06-08 15:15 | disposition home or self-care (01) | DRG 266 ==
LOC: IVU 09:21
PROVIDERS: Internal Medicine Cardiovascular Disease; Nurse Practitioner; ADMITTING PHYSICIAN Thoracic Surgery (Cardiothoracic Vascular Surgery); ATTENDING PHYSICIAN Student in an Organized Health Care Education/Training Program; FAMILY PHYSICIAN Family Medicine
PROC: 02RF38Z Replacement of Aortic Valve with Zooplastic Tissue, Percutaneous Approach (ICD-10-PCS; 2025-06-07)
DX: I35.0 Nonrheumatic aortic (valve) stenosis (principal); Z00.6 Encounter for examination for normal comparison and control in clinical research program; I50.31 Acute diastolic (congestive) heart failure; A69.20 Lyme disease, unspecified; I25.10 Atherosclerotic heart disease of native coronary artery without angina pectoris; N18.9 Chronic kidney disease, unspecified; I44.7 Left bundle-branch block, unspecified; E78.5 Hyperlipidemia, unspecified; I95.81 Postprocedural hypotension; I49.8 Other specified cardiac arrhythmias; Z88.0 Allergy status to penicillin
CPT/HCPCS: 33361; 36415; 71045; 71046; 80048; 80053; 81003; 82248; 83036; 83880; 85025; 85027; 85347; 85610; 86850; 86900; 86901; 86920; 87070; 93005; 93308; 93321; 93325; C1760; C1769; C1894; Q9967

== ENCOUNTER → 2025-07-04 10:16 | Outpatient (REF) | payer MEDICARE, SELFPAY | LOC: RCS 10:16 | PROVIDERS: ATTENDING PHYSICIAN Internal Medicine Cardiovascular Disease; FAMILY PHYSICIAN Family Medicine | DX: Z95.2 Presence of prosthetic heart valve (principal) | CPT/HCPCS: 93306 ==

== ENCOUNTER 2025-07-20 08:33 | Outpatient (RCR) | payer MEDICARE, SELFPAY | END 2025-07-20 23:59 | disposition home or self-care (01) | LOC: CRHB 08:33 | PROVIDERS: ATTENDING PHYSICIAN Internal Medicine Cardiovascular Disease; FAMILY PHYSICIAN Family Medicine | DX: I25.10 Atherosclerotic heart disease of native coronary artery without angina pectoris (principal); Z95.4 Presence of other heart-valve replacement | CPT/HCPCS: G0422; G0423 ==

== ENCOUNTER → 2025-08-01 09:27 | Outpatient (REF) | payer MEDICARE, SELFPAY ==
[2025-08-01 10:56] LABS: ALT (SGPT) 26 U/L (0-50); AST (SGOT) 38 U/L (17-59); Albumin 4.2 g/dl (3.5-5.0); Alkaline Phosphatase 77 U/L (38-126); Blood Urea Nitrogen 34 mg/dl (9-20); Calcium 9.5 mg/dl (8.4-10.2); Carbon Dioxide 28 mmol/L (22-30); Chloride 104 mmol/L (98-107); Glucose 92 mg/dl (70-99); HDL Cholesterol 47 mg/dl; LDL Cholesterol, Calculated 49 mg/dl; Potassium 4.9 mmol/L (3.5-5.1); Sodium 137 mmol/L (135-145); Total Protein 6.9 g/dl (6.3-8.2); Very Low Density Lipoprotein 15 mg/dl (0-30); eGFR 53.50
[2025-08-01 11:15] LABS: Hematocrit 30.2 % (39.0-52.0); Hemoglobin 9.4 g/dL (13.0-18.0); Mean Corp Hgb Conc. 31.1 g/dL (33.0-37.0); Mean Corpuscular Volume 107.1 fL (80.0-94.0); Platelet Count 88 10^3/uL (130-400); Red Cell Dist. Width 15.5 % (11.5-14.5)
[2025-08-01 12:00] LABS: Nucleated Red Blood Cells % 0 % (-)
== END ==
LOC: OLABPV 09:27
PROVIDERS: ATTENDING PHYSICIAN Family Medicine
DX: N18.31 Chronic kidney disease, stage 3a (principal); E78.2 Mixed hyperlipidemia; R73.01 Impaired fasting glucose
CPT/HCPCS: 36415; 80053; 80061; 85025

== ENCOUNTER 2025-08-13 09:19 | Outpatient (RCR) | payer MEDICARE, SELFPAY | END 2025-08-13 23:59 | disposition home or self-care (01) | LOC: CRHB 09:19 | PROVIDERS: ATTENDING PHYSICIAN Internal Medicine Cardiovascular Disease; FAMILY PHYSICIAN Family Medicine | DX: I25.10 Atherosclerotic heart disease of native coronary artery without angina pectoris (principal); Z95.4 Presence of other heart-valve replacement | CPT/HCPCS: 93798; G0422; G0423 ==

== ENCOUNTER → 2025-08-14 08:12 | Outpatient (REF) | payer MEDICARE, SELFPAY | LOC: RCS 08:12 | PROVIDERS: ATTENDING PHYSICIAN Internal Medicine Cardiovascular Disease; FAMILY PHYSICIAN Family Medicine | DX: I35.1 Nonrheumatic aortic (valve) insufficiency (principal) | CPT/HCPCS: 93306 ==